=== PATIENT | female | born 1935 | race Asian ===

== ENCOUNTER 2016-12-02 13:02 | Emergency (ER) | payer OTHER ==
[~2016-12-02] VITALS: Ht 157.5 cm; Wt 79.4 kg
[~2016-12-02 13:02] MED LIST: 382 PO; BENAZEPRIL10 M1; GLIPIZIDE5 M1 PO; GOOD SENSE ASPI81 M3 PO; HYDRO PAR25 MG PO; LAC PO; LACTULOSE10 GM/152 PO; MAC100 PO; MECLIZINE HYD12.5 MG PO; METFORMIN ER500 M1 PO; METFORMIN500 MG PO; NOR5 PO; VOLTAREN TP; ZES10 PO; ZOC20 PO; ZOF4 PO; [UNRECOGNIZED DRUG - OTHER]
[2016-12-02 16:44] VITALS: BP 164/81
== END 2016-12-02 16:44 | disposition home or self-care (01) ==
LOC: ED 13:02
DX: S01.81XA Laceration without foreign body of other part of head, initial encounter (principal); M54.2 Cervicalgia; M25.531 Pain in right wrist; I11.0 Hypertensive heart disease with heart failure; E11.9 Type 2 diabetes mellitus without complications; I50.20 Unspecified systolic (congestive) heart failure; W18.30XA Fall on same level, unspecified, initial encounter; Y99.8 Other external cause status; Y93.89 Activity, other specified; Y92.89 Other specified places as the place of occurrence of the external cause; Z79.84 Long term (current) use of oral hypoglycemic drugs
CPT/HCPCS: 90715; J2270; J2405; Q0092

== ENCOUNTER 2016-12-04 09:09 | Emergency (ER) | payer OTHER ==
[~2016-12-04] VITALS: Ht 154.9 cm; Wt 83.9 kg
[2016-12-04 12:22] VITALS: BP 157/67
== END 2016-12-04 12:22 | disposition home or self-care (01) ==
LOC: ED 09:09
DX: S59.202A Unspecified physeal fracture of lower end of radius, left arm, initial encounter for closed fracture (principal); T81.4XXA Infection following a procedure, initial encounter; L03.811 Cellulitis of head [any part, except face]; I11.0 Hypertensive heart disease with heart failure; E11.9 Type 2 diabetes mellitus without complications; Z79.899 Other long term (current) drug therapy; W19.XXXA Unspecified fall, initial encounter; Y93.89 Activity, other specified; Y92.89 Other specified places as the place of occurrence of the external cause; Y99.8 Other external cause status
CPT/HCPCS: Q0092

== ENCOUNTER 2016-12-08 09:53 | Emergency (ER) | payer OTHER ==
[2016-12-08 13:16] VITALS: BP 159/81
== END 2016-12-08 13:16 | disposition home or self-care (01) ==
LOC: ED 09:53
DX: S62.101A Fracture of unspecified carpal bone, right wrist, initial encounter for closed fracture (principal); S01.81XA Laceration without foreign body of other part of head, initial encounter; S60.221A Contusion of right hand, initial encounter; I11.0 Hypertensive heart disease with heart failure; I50.9 Heart failure, unspecified; G89.29 Other chronic pain; M54.2 Cervicalgia; E11.9 Type 2 diabetes mellitus without complications; M19.90 Unspecified osteoarthritis, unspecified site; W01.0XXA Fall on same level from slipping, tripping and stumbling without subsequent striking against object, initial encounter; Y93.89 Activity, other specified; Y99.8 Other external cause status; Y92.89 Other specified places as the place of occurrence of the external cause; Z79.84 Long term (current) use of oral hypoglycemic drugs
CPT/HCPCS: J2001; Q0092

== ENCOUNTER 2016-12-31 13:58 | Inpatient (IN) | payer OTHER ==
[~2016-12-31] VITALS: Ht 149.9 cm; Wt 69.4 kg
[2016-12-31] MEDS ORDERED: GLUCOTROL5 MG PO (14:25)
[2016-12-31] MEDS ORDERED: METFORMIN HCL500 MG PO (14:25)
[2016-12-31] MEDS ORDERED: HYDROCHLOROTH12.5 M2 PO (14:26)
[2016-12-31] MEDS ORDERED: NAPROSYN500 MG PO (14:26)
[2016-12-31 14:34] LABS: BASOPHIL % 0.5 % (0-2); PLATELET COUNT 390 x10^3mcL (130-400)
[2016-12-31 14:39] LABS: RED CELL DISTRIBUTION WIDTH 14.6 % (11.5-14.5)
[2016-12-31 14:41] LABS: CARBON DIOXIDE 28.4 mmol/L (21-32); CHLORIDE SERUM 101 mmol/L (98-107); GLUCOSE SERUM 87 mg/dL (74-106); POTASSIUM SERUM 3.7 mmol/L (3.5-5.1); SODIUM SERUM 140 mmol/L (136-145)
[2016-12-31 14:46] LABS: ALBUMIN 3.8 g/dL (3.4-5.0); ALKALINE PHOSPHATASE 53 U/L (46-116); ALT/SGPT 24 U/L (14-59); AST/SGOT 16 U/L (15-37); BILIRUBIN TOTAL 0.5 mg/dL (0.20-1.00); LIPASE 229 IU/L (73-393)
[2016-12-31 15:50] LABS: microscopic required? NO
[2016-12-31 16:44] VITALS: BP 154/52
[2016-12-31 16:45] LABS: UA SPECIFIC GRAVITY 1.025 (1.005-1.035); urine erythrocyte NEGATIVE (NEGATIVE)
[2016-12-31 16:50] LABS: MAGNESIUM 1.7 mg/dL (1.8-2.4); PHOSPHOROUS 3.7 mg/dL (2.5-4.9)
[2016-12-31 16:53] LABS: CHOLESTEROL/HDL RATIO 2.1
[2016-12-31 16:57] LABS: FREE T4 1.31 ng/dL (0.76-1.46); FREE THYROXINE INDEX 3.1 ug/dL (1.4-4.5); T4(THYROXINE) 8.6 ug/dL (4.7-13.3)
[2016-12-31 16:59] LABS: T3 TOTAL 0.89 ng/mL
[2016-12-31 17:01] LABS: AMPHETAMINE QUAL UR NONE DETECTED (NEG <=1000)
[2016-12-31 17:10] VITALS: BP 154/52
[2016-12-31] MEDS ORDERED: AMLODIPINE PO ×2 (17:34→17:36)
[2016-12-31] MEDS ORDERED: BENAZEPRIL PO ×2 (17:34→17:36)
[2016-12-31 20:21] VITALS: BP 132/62
[2017-01-01 05:39] VITALS: BP 123/43
[2017-01-01 06:18] LABS: CALCIUM 9.2 mg/dL (8.5-10.1); CARBON DIOXIDE 27.6 mmol/L (21-32); CHLORIDE SERUM 103 mmol/L (98-107); CREATININE SERUM 0.9 mg/dL (0.6-1.0); GLUCOSE SERUM 104 mg/dL (74-106); MAGNESIUM 2.4 mg/dL (1.8-2.4); POTASSIUM SERUM 4.2 mmol/L (3.5-5.1); SODIUM SERUM 139 mmol/L (136-145)
[2017-01-01 06:30] LABS: ALBUMIN 3.3 g/dL (3.4-5.0)
[2017-01-01 06:40] LABS: BASOPHIL % 0.2 % (0-2); PLATELET COUNT 334 x10^3mcL (130-400)
[2017-01-01 06:41] LABS: RED CELL DISTRIBUTION WIDTH 15.1 % (11.5-14.5)
[2017-01-01 09:41] VITALS: BP 141/43
[2017-01-01 14:30] VITALS: BP 127/47
[2017-01-01 18:30] VITALS: BP 151/56
[2017-01-01 20:35] VITALS: BP 138/83
[2017-01-02 05:27] VITALS: BP 139/52
[2017-01-02 06:17] LABS: CALCIUM 8.8 mg/dL (8.5-10.1); CARBON DIOXIDE 26.2 mmol/L (21-32); CHLORIDE SERUM 101 mmol/L (98-107); CREATININE SERUM 0.9 mg/dL (0.6-1.0); GLUCOSE SERUM 116 mg/dL (74-106); SODIUM SERUM 135 mmol/L (136-145)
[2017-01-02 06:22] LABS: BASOPHIL % 0.2 % (0-2); PLATELET COUNT 317 x10^3mcL (130-400)
[2017-01-02 06:23] LABS: RED CELL DISTRIBUTION WIDTH 14.9 % (11.5-14.5)
[2017-01-02 06:30] LABS: ALBUMIN 3.3 g/dL (3.4-5.0)
[2017-01-02 09:28] VITALS: BP 143/51
[2017-01-02] MEDS ORDERED: THERA TABS1 TAB PO (10:04)
[2017-01-02] MEDS ORDERED: CIPRO250 MG PO (10:08)
[2017-01-02] MEDS ORDERED: LAC PO (10:08)
[2017-01-02] MEDS ORDERED: MEDDP PO (10:14)
[2017-01-02 11:09] VITALS: BP 143/51
== END 2017-01-02 12:03 | disposition home or self-care (01) | DRG 917 ==
LOC: ED 13:58 → DU 15:37
PROVIDERS: Emergency Medicine; Family Medicine; ADMIT Family Medicine
DX: T60.8X1A Toxic effect of other pesticides, accidental (unintentional), initial encounter (principal); N17.0 Acute kidney failure with tubular necrosis; E44.0 Moderate protein-calorie malnutrition; E87.1 Hypo-osmolality and hyponatremia; D68.69 Other thrombophilia; E11.65 Type 2 diabetes mellitus with hyperglycemia; E11.51 Type 2 diabetes mellitus with diabetic peripheral angiopathy without gangrene; E83.42 Hypomagnesemia; E78.5 Hyperlipidemia, unspecified; I10 Essential (primary) hypertension; D64.9 Anemia, unspecified; N32.81 Overactive bladder; J68.3 Other acute and subacute respiratory conditions due to chemicals, gases, fumes and vapors; Y92.018 Other place in single-family (private) house as the place of occurrence of the external cause; Z79.84 Long term (current) use of oral hypoglycemic drugs; Z86.73 Personal history of transient ischemic attack (TIA), and cerebral infarction without residual deficits
CPT/HCPCS: 80307; 83880; 84439; J1200; J2920; J2930; J3475; J7030; J7042; J7613; J7620; Q0092

== ENCOUNTER 2017-07-28 07:40 | Emergency (ER) | payer OTHER ==
[~2017-07-28] VITALS: Ht 152.4 cm; Wt 77.1 kg
[~2017-07-28 07:40] MED LIST changes: +AMLODIPINE PO; +BENAZEPRIL PO; +CIPRO250 MG PO; +GLUCOTROL5 MG PO; +HYDROCHLOROTH12.5 M2 PO; +MEDDP PO; +METFORMIN HCL500 MG PO; +NAPROSYN500 MG PO; +THERA TABS1 TAB PO
[2017-07-28 08:57] LABS: BASOPHIL % 0.5 % (0-2)
[2017-07-28 09:04] LABS: PLATELET COUNT 402 x10^3mcL (130-400); RED CELL DISTRIBUTION WIDTH 17.7 % (11.5-14.5)
[2017-07-28 09:07] LABS: CALCIUM 9.3 mg/dL (8.5-10.1); CARBON DIOXIDE 26.8 mmol/L (21-32); CHLORIDE SERUM 102 mmol/L (98-107); CREATININE SERUM 0.9 mg/dL (0.6-1.0); GLUCOSE SERUM 136 mg/dL (74-106); POTASSIUM SERUM 4.1 mmol/L (3.5-5.1); SODIUM SERUM 139 mmol/L (136-145)
[2017-07-28 09:20] LABS: ALBUMIN 3.5 g/dL (3.4-5.0); ALKALINE PHOSPHATASE 65 U/L (46-116); ALT/SGPT 19 U/L (14-59); AST/SGOT 17 U/L (15-37); BILIRUBIN TOTAL 0.6 mg/dL (0.20-1.00); CHOLESTEROL 140 mg/dL (<200); HDL CHOLESTEROL 56 mg/dL (40-60); PHOSPHOROUS 3.7 mg/dL (2.5-4.9); TOTAL PROTEIN, SERUM 7.1 g/dL (6.4-8.2); URIC ACID 4.5 mg/dL (2.6-6.0)
[2017-07-28 09:45] VITALS: BP 130/56
== END 2017-07-28 10:00 | disposition home or self-care (01) ==
LOC: ED 07:40
PROVIDERS: Emergency Medicine
DX: J45.909 Unspecified asthma, uncomplicated (principal); E78.00 Pure hypercholesterolemia, unspecified; I11.0 Hypertensive heart disease with heart failure; I50.9 Heart failure, unspecified; Z86.73 Personal history of transient ischemic attack (TIA), and cerebral infarction without residual deficits
CPT/HCPCS: 83880; J2060; Q0092

== ENCOUNTER 2020-04-14 19:07 | Emergency (ER) | payer OTHER ==
[~2020-04-14] VITALS: Ht 167.6 cm; Wt 90.7 kg
[2020-04-14 19:14] VITALS: Ht 167.6 cm; Wt 90.7 kg
[2020-04-14 21:48] VITALS: BP 160/61
== END 2020-04-14 21:46 | disposition home or self-care (01) ==
LOC: ED 19:07
DX: S22.41XA Multiple fractures of ribs, right side, initial encounter for closed fracture (principal); I50.9 Heart failure, unspecified; I10 Essential (primary) hypertension; E11.9 Type 2 diabetes mellitus without complications; E78.00 Pure hypercholesterolemia, unspecified; W01.0XXA Fall on same level from slipping, tripping and stumbling without subsequent striking against object, initial encounter; Y93.89 Activity, other specified; Y92.89 Other specified places as the place of occurrence of the external cause; Y99.8 Other external cause status
CPT/HCPCS: Q0092